=== PATIENT | female | born 1965 | race Caucasian/White ===

== ENCOUNTER 2023-07-08 10:22 | Emergency (ER) | payer SELFPAY ==
[~2023-07-08] VITALS: Ht 167.6 cm; Wt 81.0 kg
[2023-07-08] MEDS: KETOROLAC 60MG/2ML VIAL IM ONE (10:41)
[2023-07-08] MEDS ORDERED: IBUP-2029 MT (10:49)
[2023-07-08] MEDS ORDERED: BENZ100C86 MT (10:49)
[2023-07-08 11:01] VITALS: BP 134/59; PULSE 74; RESP 18; TEMP 98.5
== END 2023-07-08 11:05 | disposition home or self-care (01) ==
LOC: ER 10:22
DX: J06.9 Acute upper respiratory infection, unspecified (principal); Z68.28 Body mass index [BMI] 28.0-28.9, adult
CPT/HCPCS: 99283; 81025; 96372; J1885